=== PATIENT | female | born 1945 | race Caucasian/White ===

== ENCOUNTER 2018-02-10 09:07 | Emergency (ER) | payer MEDICARE, OTHER ==
--- NOTE | 2018-02-10 09:10 | ED Physician Documentation ---
General Adult - HISTORIAN Historian: patient - HPI Stated Complaint: left eye concern Chief Complaint: Eye Trauma Onset: days ago (1) Timing: still present Severity: mild Further Comments: yes (She states she noticed last night that she had some redness and drainage from her left eye. She has some mild pain and itching . She does remember after discussion she did hit her "eyeball with my eye dropper " . She denies any headache. Denies any possible forgien object in her eye. No fever. She does note some green crusting in the eye lashes. No change in vision. ) Last known Well Code/Unknown Code: Unknown - ROS CONST: no problems - PAST HX Past History: hypertension Surgeries/Procedures: hysterectomy, other (appy and T&A, right eye surgery ) Immunizations: UTD Allergies/Adverse Reactions: Allergies Allergy/AdvReac Type Severity Reaction Status Date / Time thyroid, pork Allergy Rash Verified 02/10/18 09:20 pyrithione zinc AdvReac Fainting Verified 02/10/18 09:20 [From Beta Med] Home Medications: Ambulatory Orders Medication Instructions Recorded Aspirin EC [Ecotrin] 81 mg PO D 06/05/16 Brimonidine Tartrate [Alphagan P] 1 drop EACHEYE DIRECTED 06/05/16 Dorzolamide HCl [Trusopt] 1 drop EACHEYE DIRECTED 06/05/16 Hydrochlorothiazide [Hydrodiuril] 1 tab PO D 06/05/16 Quinapril HCl [Accupril] 40 mg PO D 06/05/16 - SOCIAL HX Smoking History: non-smoker Alcohol Use: none Drug Use: none - FAMILY HX Family History: No - VITAL SIGNS Vital Signs: Vital Signs Temp Pulse Resp BP Pulse Ox 150/91 06/05/16 01:30 - REVIEWED ASSESSMENTS Nursing Assessment Reviewed: Yes Vitals Reviewed: Yes General Adult Physical Exam - PHYSICAL EXAM GENERAL APPEARANCE: no distress EENT: no signs of dehydration, other (conjuctiva Left eye red. Noted green crusting drainge in eye lashes. redness in eye ) RESPIRATORY: no resp distress CVS: reg rate & rhythm, heart sounds normal, equal pulses, no murmur ABDOMEN: soft, no organomegaly, normal bowel sounds, no distension, non-tender BACK: normal inspection SKIN: warm/dry, normal color EXTREMITIES: non-tender, normal range of motion, no evidence of injury, no edema NEURO: oriented X3, CN's nml as tested, motor nml, sensation nml, mood/affect nml Discharge Clincal Impression: Conjunctivitis, left eye Referrals: Primary Doctor,No [REFERRING] - 2 Days Additional Instructions: 1. Gentamicin eye drops - Use 1 drop in the left eye three times per day 2. Warm/Cool pack to eye 3. Do not place dropper in the eye or touch eye lid 4. Clean any items that have touched your eye 5. Follow up with eye dr on Monday 6. Hold on other eye drops 7. Return to ER for any concerns Condition: Stable Disposition: 01 HOME, SELF-CARE Decision to Admit: NO Date of Decison to Admit: 02/10/18 Decision Time: 09:38
[2018-02-10 09:29] VITALS: BP 145/81
== END 2018-02-10 09:45 | disposition home or self-care (01) ==
LOC: ED 09:07
DX: H10.32 Unspecified acute conjunctivitis, left eye (principal)
CPT/HCPCS: 99282